=== PATIENT | female | born 1980 | race Caucasian/White ===

== ENCOUNTER 2018-06-15 08:44 | Inpatient (IN) | payer BC ==
[2018-06-15] MEDS ORDERED: Sodium Chloride 0.9% 10 ML Syringe FLUSH PRN (09:04)
[2018-06-15] MEDS ORDERED: LORazepam 2 MG/ML SDV IVPUSH ONE ×3 (09:04→23:05)
[2018-06-15] MEDS ORDERED: Ondansetron 4 MG/2 ML SDV IVPUSH ONE (09:06)
[2018-06-15] MEDS ORDERED: Sodium Chloride 0.9% 1,000 ML IV SCH ×3 (09:15→11:30)
--- NOTE | 2018-06-15 09:19 | EDM.PDOC ---
ED HPI GENERAL MEDICAL PROBLEM - General Chief Complaint: Neurological Problem Stated Complaint: [facility] Time Seen by Provider: 06/15/18 08:52 Source of Information: Reports: Patient, EMS, RN Notes Reviewed - History of Present Illness INITIAL COMMENTS - FREE TEXT/NARRATIVE: 38-year-old female has been brought over by ambulance from for clinic after she experienced a witnessed 3-5 minute seizure. She had gone there for evaluation of abdominal pain, vomiting. She apparently had just been walked back into her room when she started with generalized seizure activity. Ambulance was called for transport here to the ED area upon their arrival the seizure had stopped, she was awake, mildly confused but already oriented to person and answering some questions quite appropriately. She states that she did become ill about 2 days ago with abdominal pain and also has had a lot of nausea and vomiting. The pain is been generalized abdomen but more upper than lower with some radiation to her back. She still does have gallbladder and appendix. She does smoke and admits to drinking alcohol quite regularly as well. - Related Data Allergies Allergy/AdvReac Type Severity Reaction Status Date / Time No Known Allergies Allergy Verified 06/15/18 08:54 Home Meds: Home Meds . [No Known Home Meds] 06/15/18 [History] Past Medical History - Past Health History Medical/Surgical History: Denies Medical/Surgical History Social & Family History - Tobacco Use Smoking Status *Q: Never Smoker - Recreational Drug Use Recreational Drug Use: No ED ROS GENERAL - Review of Systems Review Of Systems: See Below Constitutional: Denies: Fever, Chills, Diaphoresis HEENT: Denies: Rhinitis, Throat Pain Respiratory: Denies: Shortness of Breath, Hemoptysis GI/Abdominal: Reports: Abdominal Pain (for 2 days), Nausea, Vomiting (for 2 days ) Skin: Denies: Rash Neurological: Reports: Weakness (Generalized). Denies: Numbness, Tingling ED EXAM, GI/ABD - Physical Exam Exam: See Below General Appearance: Alert, Moderate Distress Eyes: Bilateral: Normal Appearance Throat/Mouth: Other (Oral mucosa is dry, she does have abrasion injury right tongue, no active bleeding) Head: Atraumatic Neck: Supple Respiratory/Chest: No Respiratory Distress, Lungs Clear, Normal Breath Sounds Cardiovascular: Regular Rate, Rhythm GI/Abdominal Exam: Tender. No: Guarding, Rebound (Upper mid abdomen right upper quadrant) Back Exam: No: CVA Tenderness (L), CVA Tenderness (R) Neurological: Alert, Oriented, No Motor/Sensory Deficits Skin Exam: Warm, Dry, Normal Color Course - Vital Signs Last Recorded V/S: Last Vital Signs Temp 98.2 F 06/15/18 08:49 Pulse 97 06/15/18 08:49 Resp 20 06/15/18 08:49 BP 161/91 H 06/15/18 08:49 Pulse Ox 100 06/15/18 08:49 - Orders/Labs/Meds Orders: Active Orders 24 hr Category Date Time Status Peripheral IV Care [RC] . DIRECTED Care 06/15/18 09:05 Active CPK [CREATINE KINASE,CK] [CHEM] Stat Lab 06/15/18 11:29 Ordered DRUG SCREEN, URINE [URCHEM] Stat Lab 06/15/18 11:29 Ordered ETHANOL BLOOD MEDICAL [CHEM] Stat Lab 06/15/18 11:29 Ordered Sodium Chloride 0.9% [Normal Saline] 1,000 ml Med 06/15/18 09:15 Active IV ONETIME Sodium Chloride 0.9% [Normal Saline] 1,000 ml Med 06/15/18 11:15 Active IV ONETIME Sodium Chloride 0.9% [Normal Saline] 1,000 ml Med 06/15/18 11:30 Active IV ONETIME Sodium Chloride 0.9% [Saline Flush] Med 06/15/18 09:04 Active 10 ml FLUSH ASDIRECTED PRN Peripheral IV Insertion Adult [OM.PC] Stat Oth 06/15/18 09:04 Ordered Medication Orders Sodium Chloride (Normal Saline) 1,000 mls @ 999 mls/hr IV ONETIME LUCIUS Last Admin: 06/15/18 09:18 Dose: 999 mls/hr Sodium Chloride (Normal Saline) 1,000 mls @ 999 mls/hr IV ONETIME LUCIUS Last Admin: 06/15/18 11:23 Dose: 999 mls/hr Sodium Chloride (Normal Saline) 1,000 mls @ 999 mls/hr IV ONETIME LUCIUS Sodium Chloride (Saline Flush) 10 ml FLUSH ASDIRECTED PRN PRN Reason: Keep Vein Open Last Admin: 06/15/18 09:11 Dose: 10 ml Labs: Laboratory Tests 06/15/18 06/15/18 06/15/18 Range/Units 08:50 08:50 08:50 WBC 12.07 H (3.98-10.04) K/mm3 RBC 4.26 (3.98-5.22) M/mm3 Hgb 14.5 (11.2-15.7) gm/L Hct 44.0 (34.1-44.9) % MCV 103.3 H (79.4-94.8) fl MCH 34.0 H (25.6-32.2) pg MCHC 33.0 (32.2-35.5) g/dl RDW Std Deviation 48.5 H (36.4-46.3) fL Plt Count 160 L (182-369) K/mm3 MPV 10.1 (9.4-12.3) fl Neut % (Auto) 87.7 H (34.0-71.1) % Lymph % (Auto) 6.9 L (19.3-51.7) % Dickinson % (Auto) 4.9 (4.7-12.5) % Eos % (Auto) 0.1 L (0.7-5.8) Baso % (Auto) 0.2 (0.1-1.2) % Neut # (Auto) 10.59 H (1.56-6.13) K/mm3 Lymph # (Auto) 0.83 L (1.18-3.74) K/mm3 Dickinson # (Auto) 0.59 H (0.24-0.36) K/mm3 Eos # (Auto) 0.01 L (0.04-0.36) K/mm3 Baso # (Auto) 0.03 (0.01-0.08) K/mm3 Manual Slide Review Abnormal smear Sodium 138 (136-145) mEq/L Potassium 3.1 L (3.5-5.1) mEq/L Chloride 96 L (98-107) mEq/L Carbon Dioxide 14 L (21-32) mEq/L Anion Gap 31.1 H (5-15) BUN 10 (7-18) mg/dL Creatinine 1.5 H (0.55-1.02) mg/dL Est Cr Clr Drug Dosing 42.06 mL/min Estimated GFR (MDRD) 39 (>60) mL/min BUN/Creatinine Ratio 6.7 L (14-18) Glucose 119 H (74-106) mg/dL Lactic Acid (0.4-2.0) mmol/L Calcium 9.3 (8.5-10.1) mg/dL Total Bilirubin 2.1 H (0.2-1.0) mg/dL AST TNP ALT TNP Alkaline Phosphatase 66 (46-116) U/L C-Reactive Protein 5.6 H* (<1.0) mg/dL Total Protein 8.0 (6.4-8.2) g/dl Albumin 4.6 (3.4-5.0) g/dl Globulin 3.4 gm/dL Albumin/Globulin Ratio 1.4 (1-2) Lipase 37187 H (73-393) U/L 06/15/18 Range/Units 08:50 WBC (3.98-10.04) K/mm3 RBC (3.98-5.22) M/mm3 Hgb (11.2-15.7) gm/L Hct (34.1-44.9) % MCV (79.4-94.8) fl MCH (25.6-32.2) pg MCHC (32.2-35.5) g/dl RDW Std Deviation (36.4-46.3) fL Plt Count (182-369) K/mm3 MPV (9.4-12.3) fl Neut % (Auto) (34.0-71.1) % Lymph % (Auto) (19.3-51.7) % Dickinson % (Auto) (4.7-12.5) % Eos % (Auto) (0.7-5.8) Baso % (Auto) (0.1-1.2) % Neut # (Auto) (1.56-6.13) K/mm3 Lymph # (Auto) (1.18-3.74) K/mm3 Dickinson # (Auto) (0.24-0.36) K/mm3 Eos # (Auto) (0.04-0.36) K/mm3 Baso # (Auto) (0.01-0.08) K/mm3 Manual Slide Review Sodium (136-145) mEq/L Potassium (3.5-5.1) mEq/L Chloride (98-107) mEq/L Carbon Dioxide (21-32) mEq/L Anion Gap (5-15) BUN (7-18) mg/dL Creatinine (0.55-1.02) mg/dL Est Cr Clr Drug Dosing mL/min Estimated GFR (MDRD) (>60) mL/min BUN/Creatinine Ratio (14-18) Glucose (74-106) mg/dL Lactic Acid 14.5 H (0.4-2.0) mmol/L Calcium (8.5-10.1) mg/dL Total Bilirubin (0.2-1.0) mg/dL AST ALT Alkaline Phosphatase (46-116) U/L C-Reactive Protein (<1.0) mg/dL Total Protein (6.4-8.2) g/dl Albumin (3.4-5.0) g/dl Globulin gm/dL Albumin/Globulin Ratio (1-2) Lipase (73-393) U/L Meds: Medications Generic Name Dose Route Start Last Admin Trade Name Roelq PRN Reason Stop Dose Admin Sodium Chloride 1,000 mls @ 999 mls/hr 06/15/18 09:15 06/15/18 09:18 Normal Saline IV 999 mls/hr ONETIME LUCIUS Administration Sodium Chloride 1,000 mls @ 999 mls/hr 06/15/18 11:15 06/15/18 11:23 Normal Saline IV 999 mls/hr ONETIME LUCIUS Administration Sodium Chloride 1,000 mls @ 999 mls/hr 06/15/18 11:30 Normal Saline IV ONETIME LUCIUS Sodium Chloride 10 ml 06/15/18 09:04 06/15/18 09:11 Saline Flush FLUSH 10 ml ASDIRECTED PRN Administration Keep Vein Open Discontinued Medications Generic Name Dose Route Start Last Admin Trade Name Roelq PRN Reason Stop Dose Admin Diatrizoate Meglum/Diatrizoate Sod 90 ml 06/15/18 11:35 Gastrografin 37% PO 06/15/18 11:36 ONETIME ONE Hydromorphone HCl 1 mg 06/15/18 10:20 06/15/18 11:41 Dilaudid IVPUSH 06/15/18 10:21 0.5 mg ONETIME ONE Administration Iopamidol 200 ml 06/15/18 11:36 Isovue-370 (76%) IV 06/15/18 11:37 ONETIME ONE Lorazepam 0.5 mg 06/15/18 09:04 06/15/18 09:11 Ativan IVPUSH 06/15/18 09:05 0.5 mg ONETIME ONE Administration Lorazepam 0.5 mg 06/15/18 10:21 06/15/18 10:29 Ativan IVPUSH 06/15/18 10:22 0.5 mg ONETIME ONE Administration Metoclopramide HCl 5 mg 06/15/18 11:33 06/15/18 11:39 Reglan IVPUSH 06/15/18 11:34 5 mg ONETIME ONE Administration Ondansetron HCl 4 mg 06/15/18 09:06 06/15/18 09:18 Zofran IVPUSH 06/15/18 09:07 4 mg ONETIME ONE Administration Sodium Chloride 10 ml 06/15/18 11:37 Saline Flush FLUSH 06/15/18 11:38 ONETIME ONE - Re-Assessments/Exams Free Text/Narrative Re-Assessment/Exam: 06/15/18 11:30. Have treated with IV fluid, IV Zofran, Ativan, Dilaudid. She does feel better. Lipase is come back tremendously elevated, over 11,000, to sound upper abdomen has been ordered. We'll continue above treatment. 11:50. Ultrasound report is back showing some fluid next to the gallbladder neck small amount of ascites right lobe of liver, slightly prominent pancreatic duct. Fatty infiltration of the liver. No additional abnormality noted. See radiology report for details. There was strong consideration of doing abdominal CT. However with her dehydration, renal function impaired, elevated BUN/ creatinine will hold off on CT for now. Patient will be admitted for further treatment. Departure - Departure Time of Disposition: 11:30 Disposition: Admitted As Inpatient 66 Clinical Impression: Dehydration, Renal insufficiency, Generalized seizure Pancreatitis Qualifiers: Chronicity: acute Pancreatitis type: alcohol induced Acute pancreatitis complication: unspecified Qualified Code(s): K85.20 - Alcohol induced acute pancreatitis without necrosis or infection - Discharge Information Referrals: Trinity Keith PA-C [Primary Care Provider] - Forms: ED Department Discharge ED Communication - Discussed Case With (1) Discussed Case With (1): Admitting Provider (Dr Chavez, decision to admit at about 11:30) - My Orders Last 24 Hours: My Active Orders 06/15/18 09:04 Sodium Chloride 0.9% [Saline Flush] 10 ml FLUSH ASDIRECTED PRN Peripheral IV Insertion Adult [OM.PC] Stat 06/15/18 09:05 Peripheral IV Care [RC] . DIRECTED 06/15/18 09:15 Sodium Chloride 0.9% [Normal Saline] 1,000 ml IV ONETIME 06/15/18 11:15 Sodium Chloride 0.9% [Normal Saline] 1,000 ml IV ONETIME 06/15/18 11:29 CPK [CREATINE KINASE,CK] [CHEM] Stat DRUG SCREEN, URINE [URCHEM] Stat ETHANOL BLOOD MEDICAL [CHEM] Stat 06/15/18 11:30 Sodium Chloride 0.9% [Normal Saline] 1,000 ml IV ONETIME - Assessment/Plan Last 24 Hours: My Active Orders 06/15/18 09:04 Sodium Chloride 0.9% [Saline Flush] 10 ml FLUSH ASDIRECTED PRN Peripheral IV Insertion Adult [OM.PC] Stat 06/15/18 09:05 Peripheral IV Care [RC] . DIRECTED 06/15/18 09:15 Sodium Chloride 0.9% [Normal Saline] 1,000 ml IV ONETIME 06/15/18 11:15 Sodium Chloride 0.9% [Normal Saline] 1,000 ml IV ONETIME 06/15/18 11:29 CPK [CREATINE KINASE,CK] [CHEM] Stat DRUG SCREEN, URINE [URCHEM] Stat ETHANOL BLOOD MEDICAL [CHEM] Stat 06/15/18 11:30 Sodium Chloride 0.9% [Normal Saline] 1,000 ml IV ONETIME
[2018-06-15] MEDS: HYDROmorphone 1 MG/ML Syringe IVPUSH ONE ×2 (10:30→11:41)
[2018-06-15] MEDS ORDERED: Metoclopramide 10 MG/2 ML SDV IVPUSH ONE (11:33)
[2018-06-15] MEDS ORDERED: Diatrizoate Meglumine/Diatrizoate Sodium 37% 120 ML Bottle PO ONE (11:35)
[2018-06-15] MEDS ORDERED: Iopamidol 755 Mg/ML 200 ML Bottle IV ONE (11:36)
[2018-06-15] MEDS ORDERED: Sodium Chloride 0.9% 10 ML Syringe FLUSH ONE (11:37)
--- NOTE | 2018-06-15 11:53 | US ---
Limited abdominal ultrasound: Multiple real-time images were obtained of the upper right abdomen. Comparison: No prior abdominal imaging. Pancreatic duct is slightly enlarged at 3.3 mm. Etiology is not appreciated on this exam. Right and left lobes of the liver appears somewhat echogenic compatible with fatty infiltration. Right kidney shows no hydronephrosis or mass. Right kidney has a length of 11.1 cm. Gallbladder shows no shadowing gallstones. There appears to be a minimal amount of fluid next to the gallbladder neck. No gallbladder wall thickening is seen. No biliary duct dilatation is seen. There is small amount of ascites seen next to the right lobe of the liver. Impression: 1. Minimal fluid next to the gallbladder neck. Small amount of ascites next to the right lobe of the liver. 2. Slightly prominent pancreatic duct of uncertain etiology. 3. Fatty infiltration within the liver. 4. No additional abnormality is appreciated on right upper quadrant abdominal ultrasound. Diagnostic code #3
[2018-06-15] MEDS ORDERED: HYDROmorphone 1 MG/ML Syringe IVPUSH PRN (12:06)
[2018-06-15] MEDS ORDERED: Lactated Ringers 1,000 ML IV ONE (12:06)
[2018-06-15] MEDS ORDERED: Ondansetron 4 MG/2 ML SDV IV PRN (12:06)
[2018-06-15] MEDS ORDERED: Folic Acid 1 MG Tab PO ONE ×2 (12:18→15:30)
[2018-06-15] MEDS ORDERED: Thiamine 100 MG in Sodium Chloride 0.9% 100 ML IV ONE (12:18)
[2018-06-15] MEDS ORDERED: Potassium Chloride 10% 20 MEQ/15 ML Soln 15 ML UD Cup PO ONE ×2 (12:20→15:30)
[2018-06-15] MEDS: LORazepam 2 MG/ML SDV IV SCH ×3 (13:13→20:50)
--- NOTE | 2018-06-15 13:22 | CR ---
Chest: Portable view of the chest was obtained. Comparison: No prior chest x-ray. Heart size and mediastinum are normal. Lungs are clear with no acute parenchymal change. Bony structures are grossly intact. Impression: 1. Nothing acute is seen on portable chest x-ray. Diagnostic code #1
--- NOTE | 2018-06-15 13:34 | PCM.HP ---
H&P History of Present Illness - General Date of Service: 06/15/18 Admit Problem/Dx: Admission Diagnosis/Problem Admission Diagnosis/Problem Pancreatitis Source of Information: Patient - History of Present Illness Initial Comments - Free Text/Narative: This 38-year-old female, with a witnessed seizure this morning at the [facility], was brought to the emergency room by EMS. Patient states that Friday she started developing abdominal pain in the epigastrium that radiated into her chest. This occurred after lunch. Throughout the rest of the day the pain became more generalized the abdomen and worse. She states the pain was excruciating. On Friday morning patient woke up and started vomiting and essentially vomited all day and all night. This morning she went to the [facility] for further evaluation where she became unresponsive, had seizure-like activity per emergency room physician, and EMS was called. Patient does not remember anything from after getting her vital signs taken to when the EMS arrived this morning. She she denies any previous seizure activity. She also states she did not have urinary or stool incontinence. It is not believed that she struck her head during the seizure. The seizure reportedly lasted 3-5 minutes. Patient states now after getting Zofran, Dilaudid and Ativan that her pain is tolerable and she has had no more vomiting. Patient states that on Friday night she did have 3-4 16 ounce beers. She was at a work function. She states she drinks usually on the weekends and this is not an unusual amount. During the week she will have 1-2, but not every night. She has never had significant withdrawal symptoms, seizures, or delirium. She has had a hangover. Her last alcoholic drink was on Friday. She denies any hematemesis, black stools, or blood in her stools. Ultrasound of the right upper quadrant found minimal fluid next to the gallbladder neck. Small amount of ascites next to the right lobe of the liver. Slightly prominent pancreatic duct of uncertain etiology. Fatty infiltration within the liver. Please see full report for details. - Related Data Allergies/Adverse Reactions: Allergies Allergy/AdvReac Type Severity Reaction Status Date / Time No Known Allergies Allergy Verified 06/15/18 14:38 Home Medications: Home Meds medroxyPROGESTERone Acetate [Depo-Provera] 150 mg IM ASDIRECTED 06/15/18 [ History] Past Medical History - Past Health History Medical/Surgical History: Denies Medical/Surgical History Social & Family History - Family History GI: Reports: Cirrhosis (Father) Psychiatric: Reports: Other (See Below) (Mother and father alcoholism. Father from alcohol related conditions) - Tobacco Use Smoking Status *Q: Never Smoker - Recreational Drug Use Recreational Drug Use: No - Living Situation & Occupation Living situation: Reports: Single, Other (Children age 14 and 4) Occupation: Employed H&P Review of Systems - Review of Systems: Review Of Systems: See Below General: Reports: Fatigue, Decreased Appetite HEENT: Reports: No Symptoms. Denies: Headaches, Visual Changes Pulmonary: Reports: No Symptoms. Denies: Shortness of Breath, Cough Cardiovascular: Reports: Chest Pain. Denies: Palpitations, Dyspnea on Exertion , PND, Edema Gastrointestinal: Reports: Abdominal Pain, Anorexia, Nausea, Vomiting. Denies: Black Stool, Bloody Stool, Diarrhea, Hematemesis, Hematochezia, Melena Genitourinary: Reports: No Symptoms. Denies: Dysuria, Frequency Musculoskeletal: Reports: Back Pain. Denies: Leg Pain Skin: Reports: No Symptoms Psychiatric: Reports: No Symptoms. Denies: Confusion Neurological: Reports: No Symptoms. Denies: Confusion, Dizziness, Headache, Numbness Hematologic/Lymphatic: Reports: No Symptoms Immunologic: Reports: No Symptoms Exam - Exam Exam: See Below - Vital Signs Vital Signs: Last Vital Signs Temp 98.2 F 06/15/18 08:49 Pulse 97 06/15/18 08:49 Resp 20 06/15/18 08:49 BP 161/91 H 06/15/18 08:49 Pulse Ox 100 06/15/18 08:49 Weight: 125 lb - Exam General: Alert, Oriented, Cooperative HEENT: Conjunctiva Clear, EOMI, Mucosa Moist & [place] Neck: Supple, Trachea Midline Lungs: Clear to Auscultation, Normal Respiratory Effort Cardiovascular: Regular Rate, Regular Rhythm GI/Abdominal Exam: Soft, No Organomegaly, No Distention, Tender, Other ( Hyperactive bowel sounds) Back Exam: Normal Inspection Extremities: Normal Inspection, Normal Range of Motion, No Pedal Edema, Normal Capillary Refill Peripheral Pulses: 2+: Dorsalis Pedis (L), Dorsalis Pedis (R) Skin: Warm, Dry, Intact Neuro Extensive - Mental Status: Alert, Oriented x3, Normal Mood/Affect, Normal Cognition Neuro Extensive - Motor, Sensory, Reflexes: Tremor Psychiatric: Alert, Normal Affect, Normal Mood - Patient Data Lab Results Last 24 hrs: Laboratory Results - last 24 hr 06/15/18 06/15/18 06/15/18 Range/Units 08:50 08:50 08:50 WBC 12.07 H (3.98-10.04) K/mm3 RBC 4.26 (3.98-5.22) M/mm3 Hgb 14.5 (11.2-15.7) gm/L Hct 44.0 (34.1-44.9) % MCV 103.3 H (79.4-94.8) fl MCH 34.0 H (25.6-32.2) pg MCHC 33.0 (32.2-35.5) g/dl RDW Std Deviation 48.5 H (36.4-46.3) fL Plt Count 160 L (182-369) K/mm3 MPV 10.1 (9.4-12.3) fl Neut % (Auto) 87.7 H (34.0-71.1) % Lymph % (Auto) 6.9 L (19.3-51.7) % Crowley % (Auto) 4.9 (4.7-12.5) % Eos % (Auto) 0.1 L (0.7-5.8) Baso % (Auto) 0.2 (0.1-1.2) % Neut # (Auto) 10.59 H (1.56-6.13) K/mm3 Lymph # (Auto) 0.83 L (1.18-3.74) K/mm3 Crowley # (Auto) 0.59 H (0.24-0.36) K/mm3 Eos # (Auto) 0.01 L (0.04-0.36) K/mm3 Baso # (Auto) 0.03 (0.01-0.08) K/mm3 Manual Slide Review Abnormal smear PT (9.5-12.1) SECONDS INR APTT (24-31) SECONDS Puncture Site ABG pH (7.35-7.45) ABG pCO2 (35.0-45.0) mmHg ABG pO2 (80.0-100.0) mmHg ABG HCO3 (22.0-26.0) meq/L ABG O2 Saturation (96.0-97.0) % ABG Base Excess (-2-2.0) Harjeet Test O2 Delivery Device Oxygen Flow Rate FiO2 (21.00-100.00) % Sodium 138 (136-145) mEq/L Potassium 3.1 L (3.5-5.1) mEq/L Chloride 96 L (98-107) mEq/L Carbon Dioxide 14 L (21-32) mEq/L Anion Gap 31.1 H (5-15) BUN 10 (7-18) mg/dL Creatinine 1.5 H (0.55-1.02) mg/dL Est Cr Clr Drug Dosing 42.06 mL/min Estimated GFR (MDRD) 39 (>60) mL/min BUN/Creatinine Ratio 6.7 L (14-18) Glucose 119 H (74-106) mg/dL Lactic Acid (0.4-2.0) mmol/L Calcium 9.3 (8.5-10.1) mg/dL Phosphorus (2.6-4.7) mg/dL Magnesium (1.8-2.4) mg/dl Total Bilirubin 2.1 H (0.2-1.0) mg/dL AST TNP ALT TNP Alkaline Phosphatase 66 (46-116) U/L Creatine Kinase (26-192) U/L Troponin I (0.00-0.056) ng/mL C-Reactive Protein 5.6 H* (<1.0) mg/dL Total Protein 8.0 (6.4-8.2) g/dl Albumin 4.6 (3.4-5.0) g/dl Globulin 3.4 gm/dL Albumin/Globulin Ratio 1.4 (1-2) Lipase 61565 H (73-393) U/L Ethyl Alcohol (0.00) gm% 06/15/18 06/15/18 06/15/18 Range/Units 08:50 08:50 08:50 WBC (3.98-10.04) K/mm3 RBC (3.98-5.22) M/mm3 Hgb (11.2-15.7) gm/L Hct (34.1-44.9) % MCV (79.4-94.8) fl MCH (25.6-32.2) pg MCHC (32.2-35.5) g/dl RDW Std Deviation (36.4-46.3) fL Plt Count (182-369) K/mm3 MPV (9.4-12.3) fl Neut % (Auto) (34.0-71.1) % Lymph % (Auto) (19.3-51.7) % Crowley % (Auto) (4.7-12.5) % Eos % (Auto) (0.7-5.8) Baso % (Auto) (0.1-1.2) % Neut # (Auto) (1.56-6.13) K/mm3 Lymph # (Auto) (1.18-3.74) K/mm3 Crowley # (Auto) (0.24-0.36) K/mm3 Eos # (Auto) (0.04-0.36) K/mm3 Baso # (Auto) (0.01-0.08) K/mm3 Manual Slide Review PT 13.1 H (9.5-12.1) SECONDS INR 1.21 APTT 25 (24-31) SECONDS Puncture Site ABG pH (7.35-7.45) ABG pCO2 (35.0-45.0) mmHg ABG pO2 (80.0-100.0) mmHg ABG HCO3 (22.0-26.0) meq/L ABG O2 Saturation (96.0-97.0) % ABG Base Excess (-2-2.0) Harjeet Test O2 Delivery Device Oxygen Flow Rate FiO2 (21.00-100.00) % Sodium (136-145) mEq/L Potassium (3.5-5.1) mEq/L Chloride (98-107) mEq/L Carbon Dioxide (21-32) mEq/L Anion Gap (5-15) BUN (7-18) mg/dL Creatinine (0.55-1.02) mg/dL Est Cr Clr Drug Dosing mL/min Estimated GFR (MDRD) (>60) mL/min BUN/Creatinine Ratio (14-18) Glucose (74-106) mg/dL Lactic Acid 14.5 H (0.4-2.0) mmol/L Calcium (8.5-10.1) mg/dL Phosphorus (2.6-4.7) mg/dL Magnesium (1.8-2.4) mg/dl Total Bilirubin (0.2-1.0) mg/dL AST ALT Alkaline Phosphatase (46-116) U/L Creatine Kinase 247 H (26-192) U/L Troponin I (0.00-0.056) ng/mL C-Reactive Protein (<1.0) mg/dL Total Protein (6.4-8.2) g/dl Albumin (3.4-5.0) g/dl Globulin gm/dL Albumin/Globulin Ratio (1-2) Lipase (73-393) U/L Ethyl Alcohol 0.00 (0.00) gm% 06/15/18 06/15/18 Range/Units 08:50 12:06 WBC (3.98-10.04) K/mm3 RBC (3.98-5.22) M/mm3 Hgb (11.2-15.7) gm/L Hct (34.1-44.9) % MCV (79.4-94.8) fl MCH (25.6-32.2) pg MCHC (32.2-35.5) g/dl RDW Std Deviation (36.4-46.3) fL Plt Count (182-369) K/mm3 MPV (9.4-12.3) fl Neut % (Auto) (34.0-71.1) % Lymph % (Auto) (19.3-51.7) % Crowley % (Auto) (4.7-12.5) % Eos % (Auto) (0.7-5.8) Baso % (Auto) (0.1-1.2) % Neut # (Auto) (1.56-6.13) K/mm3 Lymph # (Auto) (1.18-3.74) K/mm3 Crowley # (Auto) (0.24-0.36) K/mm3 Eos # (Auto) (0.04-0.36) K/mm3 Baso # (Auto) (0.01-0.08) K/mm3 Manual Slide Review PT (9.5-12.1) SECONDS INR APTT (24-31) SECONDS Puncture Site Rt radial ABG pH 7.44 (7.35-7.45) ABG pCO2 32.0 L (35.0-45.0) mmHg ABG pO2 82.0 (80.0-100.0) mmHg ABG HCO3 21.4 L (22.0-26.0) meq/L ABG O2 Saturation 97.3 H (96.0-97.0) % ABG Base Excess -1.5 (-2-2.0) Harjeet Test Positive O2 Delivery Device Room air Oxygen Flow Rate 0.0 FiO2 0.00 L (21.00-100.00) % Sodium (136-145) mEq/L Potassium (3.5-5.1) mEq/L Chloride (98-107) mEq/L Carbon Dioxide (21-32) mEq/L Anion Gap (5-15) BUN (7-18) mg/dL Creatinine (0.55-1.02) mg/dL Est Cr Clr Drug Dosing mL/min Estimated GFR (MDRD) (>60) mL/min BUN/Creatinine Ratio (14-18) Glucose (74-106) mg/dL Lactic Acid (0.4-2.0) mmol/L Calcium (8.5-10.1) mg/dL Phosphorus 3.4 (2.6-4.7) mg/dL Magnesium 1.5 L (1.8-2.4) mg/dl Total Bilirubin (0.2-1.0) mg/dL AST ALT Alkaline Phosphatase (46-116) U/L Creatine Kinase (26-192) U/L Troponin I < 0.017 (0.00-0.056) ng/mL C-Reactive Protein (<1.0) mg/dL Total Protein (6.4-8.2) g/dl Albumin (3.4-5.0) g/dl Globulin gm/dL Albumin/Globulin Ratio (1-2) Lipase (73-393) U/L Ethyl Alcohol (0.00) gm% Result Diagrams: 06/15/18 08:50 06/15/18 08:50 EKG INTERPRETATION EKG Date: 06/15/18 Time: 12:30 Rhythm: NSR Rate (Beats/Min): 72 [place]: Normal P-Wave: Present QRS: Normal ST-T: Normal QT: Normal Comparison: NA - No Prior EKG EKG Interpretation Comments: Normal - Problem List (1) Generalized seizure SNOMED Code(s): 489889524 ICD Code: R56.9 - UNSPECIFIED CONVULSIONS Status: Acute Current Visit: Yes (2) Pancreatitis SNOMED Code(s): 63913609 ICD Code: K85.90 - ACUTE PANCREATITIS WITHOUT NECROSIS OR INFECTION, UNSP Status: Acute Current Visit: Yes Qualifiers: Chronicity: acute Pancreatitis type: alcohol induced Acute pancreatitis complication: unspecified Qualified Code(s): K85.20 - Alcohol induced acute pancreatitis without necrosis or infection (3) Renal insufficiency SNOMED Code(s): 152370233, 150422649 ICD Code: N28.9 - DISORDER OF KIDNEY AND URETER, UNSPECIFIED Status: Acute Current Visit: Yes (4) Dehydration SNOMED Code(s): 62081335 ICD Code: E86.0 - DEHYDRATION Status: Acute Current Visit: Yes Problem List Initiated/Reviewed/Updated: Yes Orders Last 24hrs: Active Orders 24 hr Category Date Time Status Admission Status [Patient Status] [ADT] Routine ADT 06/15/18 12:29 Active Bedrest Bedside Commode [RC] ASDIRECTED Care 06/15/18 12:06 Active Cardiac Monitoring [RC] CONTINUOUS Care 06/15/18 12:08 Active EKG Documentation Completion [RC] STAT Care 06/15/18 12:06 Active Height and Weight [RC] DAILY Care 06/15/18 12:06 Active Intake and Output [RC] QSHIFT Care 06/15/18 12:08 Active Notify Provider Vital Signs [RC] ASDIRECTED Care 06/15/18 12:08 Active Oxygen Therapy [RC] PRN Care 06/15/18 12:06 Active Peripheral IV Care [RC] . DIRECTED Care 06/15/18 09:05 Active Pulse Oximetry [RC] CONTINUOUS Care 06/15/18 12:08 Active VTE/DVT Education [RC] PER UNIT ROUTINE Care 06/15/18 12:06 Active Vital Signs [RC] Q4H Care 06/15/18 12:06 Active Consult to Case Management/Felt Finishing Supervisor [CONS] Cons 06/15/18 12:06 Active Routine Nothing per Oral Now Diet [DIET] Diet 06/15/18 Lunch Active CBC WITH AUTO DIFF [HEME] AM Lab 06/16/18 05:11 Ordered COMPREHENSIVE METABOLIC PN,CMP [CHEM] AM Lab 06/16/18 05:11 Ordered DRUG SCREEN, URINE [URCHEM] Stat Lab 06/15/18 11:29 Ordered LACTIC ACID [CHEM] AM Lab 06/16/18 05:11 Ordered LIPASE [CHEM] AM Lab 06/16/18 05:11 Ordered LIPID PANEL [CHEM] AM Lab 06/16/18 05:11 Ordered MAGNESIUM [CHEM] AM Lab 06/16/18 05:11 Ordered PHOSPHORUS [CHEM] AM Lab 06/16/18 05:11 Ordered UA W/MICROSCOPIC [URIN] Stat Lab 06/15/18 12:06 Ordered Enoxaparin [Lovenox] Med 06/16/18 09:00 Active 40 mg SUBCUT DAILY HYDROmorphone [Dilaudid] Med 06/15/18 12:06 Active 0.5 mg IVPUSH Q2H PRN LORazepam [Ativan] Med 06/15/18 12:15 Active 1 mg IV Q4H Lactated Ringers [Ringers, Lactated] 1,000 ml Med 06/15/18 12:15 Active IV ASDIRECTED Ondansetron [Zofran] Med 06/15/18 12:06 Active 4 mg IV Q4H PRN Sodium Chloride 0.9% [Normal Saline] 1,000 ml Med 06/15/18 09:15 Active IV ONETIME Sodium Chloride 0.9% [Normal Saline] 1,000 ml Med 06/15/18 11:15 Active IV ONETIME Sodium Chloride 0.9% [Normal Saline] 1,000 ml Med 06/15/18 11:30 Active IV ONETIME Sodium Chloride 0.9% [Saline Flush] Med 06/15/18 09:04 Active 10 ml FLUSH ASDIRECTED PRN Peripheral IV Insertion Adult [OM.PC] Stat Oth 06/15/18 09:04 Ordered Resuscitation Status Routine Resus Stat 06/15/18 12:06 Ordered Medication Orders Enoxaparin Sodium (Lovenox) 40 mg SUBCUT DAILY LUCIUS Hydromorphone HCl (Dilaudid) 0.5 mg IVPUSH Q2H PRN PRN Reason: Pain (severe 7-10) Sodium Chloride (Normal Saline) 1,000 mls @ 999 mls/hr IV ONETIME LUCIUS Last Admin: 06/15/18 09:18 Dose: 999 mls/hr Sodium Chloride (Normal Saline) 1,000 mls @ 999 mls/hr IV ONETIME LUCIUS Last Admin: 06/15/18 11:23 Dose: 999 mls/hr Sodium Chloride (Normal Saline) 1,000 mls @ 999 mls/hr IV ONETIME LUCIUS Last Admin: 06/15/18 13:03 Dose: 999 mls/hr Lactated Ringer's (Ringers, Lactated) 1,000 mls @ 200 mls/hr IV ASDIRECTED LUCIUS Lorazepam (Ativan) 1 mg IV Q4H LUCIUS Last Admin: 06/15/18 13:13 Dose: 1 mg Ondansetron HCl (Zofran) 4 mg IV Q4H PRN PRN Reason: Nausea/Vomiting Sodium Chloride (Saline Flush) 10 ml FLUSH ASDIRECTED PRN PRN Reason: Keep Vein Open Last Admin: 06/15/18 09:11 Dose: 10 ml Assessment/Plan Comment:: Generalized seizure * Reported generalized seizure witnessed by staff at [facility] * Unsure at this time of cause. It could be secondary to alcohol withdrawal. * Consider neuro imaging in the morning. * Continue on Ativan scheduled for seizure prevention and possible alcohol withdrawal * Monitor on telemetry with neuro checks Pancreatitis * Patient's lipase was 11,100. * Rehydrate with a minimum of 2 L bolus * Check ABGs * Significant anion gap - this could be due to her dehydration. * Elevated lactic acid - follow in the morning. Likely secondary to seizure activity and possibly alcoholism * Consider CT of the abdomen in 48 hours if patient does not improve. Dehydration * 2 L of fluid bolus * LR at 200 mL per hour * Reevaluate in the morning Acute Renal insufficiency * Creatinine is 1.5 * Likely due to volume depletion. * Volume resuscitate and recheck in the morning. Hypomagnesemia * Magnesium was 1.5 * 4 g IV and recheck in the morning
[2018-06-15] MEDS ORDERED: LORazepam 2 MG/ML SDV IVPUSH PRN (14:36)
[2018-06-15] MEDS ORDERED: Nicotine 14 MG/24 Hr Patch TRDERM SCH (15:30)
[2018-06-15] MEDS ORDERED: Thiamine 200 MG/2 ML MDV IVPUSH ONE (15:30)
[2018-06-15] MEDS: Lactated Ringers 1,000 ML IV SCH ×2 (15:46→20:52)
[2018-06-15] MEDS ORDERED: cefTRIAXone 2 GM Vial IVPUSH SCH (18:00)
[2018-06-15] MEDS ORDERED: cefTRIAXone 1 GM in Sodium Chloride 0.9% 100 ML IV SCH (18:00)
[2018-06-15] MEDS ORDERED: Lactated Ringers 1,000 ML IV SCH (23:15)
--- NOTE | 2018-06-15 23:45 | PCM.DCSUM1 ---
Discharge Summary - Hospital Course Free Text/Narrative:: This 38-year-old female, with a witnessed seizure this morning at the [facility], was brought to the emergency room by EMS. Patient states that Friday she started developing abdominal pain in the epigastrium that radiated into her chest. This occurred after lunch. Throughout the rest of the day the pain became more generalized the abdomen and worse. She states the pain was excruciating. On Friday morning patient woke up and started vomiting and essentially vomited all day and all night. This morning she went to the [facility] for further evaluation where she became unresponsive, had seizure-like activity per emergency room physician, and EMS was called. Patient does not remember anything from after getting her vital signs taken to when the EMS arrived this morning. She she denies any previous seizure activity. She also states she did not have urinary or stool incontinence. It is not believed that she struck her head during the seizure. The seizure reportedly lasted 3-5 minutes. Patient states now after getting Zofran, Dilaudid and Ativan that her pain is tolerable and she has had no more vomiting. Patient states that on Friday night she did have 3-4 16 ounce beers. She was at a work function. She states she drinks usually on the weekends and this is not an unusual amount. During the week she will have 1-2, but not every night. She has never had significant withdrawal symptoms, seizures, or delirium. She has had a hangover. Her last alcoholic drink was on Friday. She denies any hematemesis, black stools, or blood in her stools. Ultrasound of the right upper quadrant found minimal fluid next to the gallbladder neck. Small amount of ascites next to the right lobe of the liver. Slightly prominent pancreatic duct of uncertain etiology. Fatty infiltration within the liver. Please see full report for details. Patient was found to have a urinary tract infection and started on Rocephin 1 g every 24 hours. I was called to the unit secondary to increasing alcohol withdrawal symptoms. It turns out patient drinks 1 pint of vodka a day and her last alcohol was Friday. It does appear now that her seizure activity was alcohol withdrawal seizure. - Discharge Data Discharge Date: 06/15/18 Discharge Disposition: DC/Tfer to Acute Hospital 02 Condition: Poor - Discharge Diagnosis/Problem(s) (1) Generalized seizure SNOMED Code(s): 706356970 ICD Code: R56.9 - UNSPECIFIED CONVULSIONS Status: Acute Current Visit: Yes (2) Pancreatitis SNOMED Code(s): 26518452 ICD Code: K85.90 - ACUTE PANCREATITIS WITHOUT NECROSIS OR INFECTION, UNSP Status: Acute Current Visit: Yes Qualifiers: Chronicity: acute Pancreatitis type: alcohol induced Acute pancreatitis complication: unspecified Qualified Code(s): K85.20 - Alcohol induced acute pancreatitis without necrosis or infection (3) Renal insufficiency SNOMED Code(s): 327593715, 915722312 ICD Code: N28.9 - DISORDER OF KIDNEY AND URETER, UNSPECIFIED Status: Acute Current Visit: Yes (4) Dehydration SNOMED Code(s): 49143077 ICD Code: E86.0 - DEHYDRATION Status: Acute Current Visit: Yes - Patient Summary/Data Consults: Consultations 06/15/18 12:06 Consult to Case Management/Lead Clinical Research Coordinator [CONS] Routine - Patient Instructions Diet: No Alcoholic Beverages, NPO Activity: Bedrest Driving: Do Not Drive - Discharge Plan *PRESCRIPTION DRUG MONITORING PROGRAM REVIEWED*: Not Applicable *COPY OF PRESCRIPTION DRUG MONITORING REPORT IN PATIENT IRIS: Not Applicable Home Medications: Home Meds Enoxaparin [Lovenox] 40 mg SUBCUT DAILY syringe 06/15/18 [Rx] HYDROmorphone [Dilaudid] 0.5 mg IVPUSH Q2H PRN syringe 06/15/18 [Rx] LORazepam [Ativan] 1 mg IV Q4H vial 06/15/18 [Rx] LORazepam [Ativan] 1 mg IVPUSH Q4H PRN vial 06/15/18 [Rx] Lactated Ringers [Ringers, Lactated] 150 ml IV ASDIRECTED bag 06/15/18 [Rx] Nicotine [Habitrol] 14 mg TRDERM DAILY patch 06/15/18 [Rx] Ondansetron [Zofran] 4 mg IV Q4H PRN vial 06/15/18 [Rx] Remove Patch 1 ea TRDERM Q24H each 06/15/18 [Rx] Sodium Chloride 0.9% [Saline Flush] 10 ml FLUSH ASDIRECTED PRN syringe [Rx] cefTRIAXone [Rocephin] 1 gm IV Q24H adv 06/15/18 [Rx] Oxygen Therapy Mode: Room Air Referrals: Trinity Keith PA-C [Primary Care Provider] - - Discharge Summary/Plan Comment DC Time >30 min.: Yes Discharge Summary/Plan Comment: Alcohol withdrawal seizure and worsening alcohol withdrawal syndrome * Patient be transferred to [facility]. Accepting physician is Dr. Wayne Carlisle * Reported generalized seizure witnessed by staff at [facility] * Continue on Ativan in transport for seizure prevention and alcohol withdrawal Pancreatitis * Patient's lipase was 11,100. * Rehydrate with a minimum of 2 L bolus * Significant anion gap - this could be due to her dehydration. * Elevated lactic acid - follow in the morning. Likely secondary to seizure activity and possibly alcoholism * Consider CT of the abdomen in 48 hours if patient does not improve. Dehydration * 2 L of fluid bolus * LR at 150 mL per hour Acute Renal insufficiency (resolved) * Creatinine initially was 1.5, Now 0.5 * Likely due to volume depletion. * Volume resuscitate and recheck in the morning. Hypomagnesemia * Magnesium was 1.5 * 4 g IV and recheck in the morning UTI * Received Rocephin 1 gm IV Transfer to [facility] (accepting physician Dr. Wayne Carlisle) for higher level of care via EMS. - General Info Date of Service: 06/15/18 Admission Dx/Problem (Free Text: Admission Diagnosis/Problem Admission Diagnosis/Problem Pancreatitis Subjective Update: Over the last several hours patient has had increasing confusion, hallucinations , and care. Patient now needs to have one-on-one nursing and increasing doses of Ativan. Her CIWA score has gone up to 30. We do not have any beds available in the ICU, therefore patient will be transferred to [facility] for higher level of care. Functional Status: Reports: Pain Controlled - Review of Systems General: Reports: Fatigue, Malaise HEENT: Reports: No Symptoms Pulmonary: Reports: No Symptoms. Denies: Shortness of Breath, Pleuritic Chest Pain Cardiovascular: Reports: No Symptoms. Denies: Chest Pain, Palpitations Gastrointestinal: Reports: Abdominal Pain. Denies: Nausea, Vomiting Psychiatric: Reports: Confusion, Mood Lability, Anxiety, Agitation, Hallucinations - Patient Data Vitals - Most Recent: Last Vital Signs Temp 98.1 F 06/15/18 21:04 Pulse 104 H 06/15/18 21:04 Resp 18 06/15/18 21:04 BP 141/95 H 06/15/18 22:31 Pulse Ox 100 06/15/18 21:04 Weight - Most Recent: 125 lb I&O - Last 24 hours: Intake & Output 06/15/18 06/15/18 06/16/18 14:59 22:59 06:59 Intake Total 1500 Output Total 200 Balance 1300 Lab Results - Last 24 hrs: Laboratory Results - last 24 hr 06/15/18 06/15/18 06/15/18 Range/Units 08:50 08:50 08:50 WBC 12.07 H (3.98-10.04) K/mm3 RBC 4.26 (3.98-5.22) M/mm3 Hgb 14.5 (11.2-15.7) gm/L Hct 44.0 (34.1-44.9) % MCV 103.3 H (79.4-94.8) fl MCH 34.0 H (25.6-32.2) pg MCHC 33.0 (32.2-35.5) g/dl RDW Std Deviation 48.5 H (36.4-46.3) fL Plt Count 160 L (182-369) K/mm3 MPV 10.1 (9.4-12.3) fl Neut % (Auto) 87.7 H (34.0-71.1) % Lymph % (Auto) 6.9 L (19.3-51.7) % [place] % (Auto) 4.9 (4.7-12.5) % Eos % (Auto) 0.1 L (0.7-5.8) Baso % (Auto) 0.2 (0.1-1.2) % Neut # (Auto) 10.59 H (1.56-6.13) K/mm3 Lymph # (Auto) 0.83 L (1.18-3.74) K/mm3 [place] # (Auto) 0.59 H (0.24-0.36) K/mm3 Eos # (Auto) 0.01 L (0.04-0.36) K/mm3 Baso # (Auto) 0.03 (0.01-0.08) K/mm3 Manual Slide Review Abnormal smear PT (9.5-12.1) SECONDS INR APTT (24-31) SECONDS Puncture Site ABG pH (7.35-7.45) ABG pCO2 (35.0-45.0) mmHg ABG pO2 (80.0-100.0) mmHg ABG HCO3 (22.0-26.0) meq/L ABG O2 Saturation (96.0-97.0) % ABG Base Excess (-2-2.0) Harjeet Test O2 Delivery Device Oxygen Flow Rate FiO2 (21.00-100.00) % Sodium 138 (136-145) mEq/L Potassium 3.1 L (3.5-5.1) mEq/L Chloride 96 L (98-107) mEq/L Carbon Dioxide 14 L (21-32) mEq/L Anion Gap 31.1 H (5-15) BUN 10 (7-18) mg/dL Creatinine 1.5 H (0.55-1.02) mg/dL Est Cr Clr Drug Dosing 42.06 mL/min Estimated GFR (MDRD) 39 (>60) mL/min BUN/Creatinine Ratio 6.7 L (14-18) Glucose 119 H (74-106) mg/dL Lactic Acid (0.4-2.0) mmol/L Calcium 9.3 (8.5-10.1) mg/dL Phosphorus (2.6-4.7) mg/dL Magnesium (1.8-2.4) mg/dl Total Bilirubin 2.1 H (0.2-1.0) mg/dL AST TNP ALT TNP Alkaline Phosphatase 66 (46-116) U/L Creatine Kinase (26-192) U/L Troponin I (0.00-0.056) ng/mL C-Reactive Protein 5.6 H* (<1.0) mg/dL Total Protein 8.0 (6.4-8.2) g/dl Albumin 4.6 (3.4-5.0) g/dl Globulin 3.4 gm/dL Albumin/Globulin Ratio 1.4 (1-2) Lipase 95674 H (73-393) U/L Urine Color (Yellow) Urine Appearance (Clear) Urine pH (5.0-8.0) Ur Specific [place] (1.005-1.030) Urine Protein (Negative) Urine Glucose (UA) (Negative) Urine Ketones (Negative) Urine Occult Blood (Negative) Urine Nitrite (Negative) Urine Bilirubin (Negative) Urine Urobilinogen (0.2-1.0) Ur Leukocyte Esterase (Negative) Urine RBC (0-5) /hpf Urine WBC (0-5) /hpf Ur Epithelial Cells (0-5) /hpf Urine Bacteria (FEW) /hpf Urine Mucus (FEW) /hpf Urine Opiates Screen (DYSCMT=857) Ur Buprenorphine Scrn (CUTOFF=10) Ur Oxycodone Screen (ZVH4TL=074) Urine Methadone Screen (MCMQXF=466) Ur Propoxyphene Screen (KRTCPN=767) Ur Barbiturates Screen (OEYTPD=272) Ur Tricyclics Screen (WWSZOQ=890) Ur Phencyclidine Scrn (CUTOFF=25) Ur Amphetamine Screen (RETXDL=059) U Methamphetamines Scrn (WJHSOB=112) U Benzodiazepines Scrn (ZHKLNM=741) U Cocaine Metab Screen (IMGPTX=927) U Marijuana (THC) Screen (CUTOFF=50) Ethyl Alcohol (0.00) gm% 06/15/18 06/15/18 06/15/18 Range/Units 08:50 08:50 08:50 WBC (3.98-10.04) K/mm3 RBC (3.98-5.22) M/mm3 Hgb (11.2-15.7) gm/L Hct (34.1-44.9) % MCV (79.4-94.8) fl MCH (25.6-32.2) pg MCHC (32.2-35.5) g/dl RDW Std Deviation (36.4-46.3) fL Plt Count (182-369) K/mm3 MPV (9.4-12.3) fl Neut % (Auto) (34.0-71.1) % Lymph % (Auto) (19.3-51.7) % [place] % (Auto) (4.7-12.5) % Eos % (Auto) (0.7-5.8) Baso % (Auto) (0.1-1.2) % Neut # (Auto) (1.56-6.13) K/mm3 Lymph # (Auto) (1.18-3.74) K/mm3 [place] # (Auto) (0.24-0.36) K/mm3 Eos # (Auto) (0.04-0.36) K/mm3 Baso # (Auto) (0.01-0.08) K/mm3 Manual Slide Review PT 13.1 H (9.5-12.1) SECONDS INR 1.21 APTT 25 (24-31) SECONDS Puncture Site ABG pH (7.35-7.45) ABG pCO2 (35.0-45.0) mmHg ABG pO2 (80.0-100.0) mmHg ABG HCO3 (22.0-26.0) meq/L ABG O2 Saturation (96.0-97.0) % ABG Base Excess (-2-2.0) Harjeet Test O2 Delivery Device Oxygen Flow Rate FiO2 (21.00-100.00) % Sodium (136-145) mEq/L Potassium (3.5-5.1) mEq/L Chloride (98-107) mEq/L Carbon Dioxide (21-32) mEq/L Anion Gap (5-15) BUN (7-18) mg/dL Creatinine (0.55-1.02) mg/dL Est Cr Clr Drug Dosing mL/min Estimated GFR (MDRD) (>60) mL/min BUN/Creatinine Ratio (14-18) Glucose (74-106) mg/dL Lactic Acid 14.5 H (0.4-2.0) mmol/L Calcium (8.5-10.1) mg/dL Phosphorus (2.6-4.7) mg/dL Magnesium (1.8-2.4) mg/dl Total Bilirubin (0.2-1.0) mg/dL AST ALT Alkaline Phosphatase (46-116) U/L Creatine Kinase 247 H (26-192) U/L Troponin I (0.00-0.056) ng/mL C-Reactive Protein (<1.0) mg/dL Total Protein (6.4-8.2) g/dl Albumin (3.4-5.0) g/dl Globulin gm/dL Albumin/Globulin Ratio (1-2) Lipase (73-393) U/L Urine Color (Yellow) Urine Appearance (Clear) Urine pH (5.0-8.0) Ur Specific [place] (1.005-1.030) Urine Protein (Negative) Urine Glucose (UA) (Negative) Urine Ketones (Negative) Urine Occult Blood (Negative) Urine Nitrite (Negative) Urine Bilirubin (Negative) Urine Urobilinogen (0.2-1.0) Ur Leukocyte Esterase (Negative) Urine RBC (0-5) /hpf Urine WBC (0-5) /hpf Ur Epithelial Cells (0-5) /hpf Urine Bacteria (FEW) /hpf Urine Mucus (FEW) /hpf Urine Opiates Screen (YQBDAD=200) Ur Buprenorphine Scrn (CUTOFF=10) Ur Oxycodone Screen (ZDI6LW=248) Urine Methadone Screen (GIEJES=018) Ur Propoxyphene Screen (SGLZID=081) Ur Barbiturates Screen (TMNGTV=743) Ur Tricyclics Screen (RKPIXB=453) Ur Phencyclidine Scrn (CUTOFF=25) Ur Amphetamine Screen (VTQLXH=899) U Methamphetamines Scrn (AQSEGA=562) U Benzodiazepines Scrn (NFWAPT=111) U Cocaine Metab Screen (VCCXED=773) U Marijuana (THC) Screen (CUTOFF=50) Ethyl Alcohol 0.00 (0.00) gm% 06/15/18 06/15/18 06/15/18 Range/Units 08:50 12:06 14:15 WBC (3.98-10.04) K/mm3 RBC (3.98-5.22) M/mm3 Hgb (11.2-15.7) gm/L Hct (34.1-44.9) % MCV (79.4-94.8) fl MCH (25.6-32.2) pg MCHC (32.2-35.5) g/dl RDW Std Deviation (36.4-46.3) fL Plt Count (182-369) K/mm3 MPV (9.4-12.3) fl Neut % (Auto) (34.0-71.1) % Lymph % (Auto) (19.3-51.7) % [place] % (Auto) (4.7-12.5) % Eos % (Auto) (0.7-5.8) Baso % (Auto) (0.1-1.2) % Neut # (Auto) (1.56-6.13) K/mm3 Lymph # (Auto) (1.18-3.74) K/mm3 [place] # (Auto) (0.24-0.36) K/mm3 Eos # (Auto) (0.04-0.36) K/mm3 Baso # (Auto) (0.01-0.08) K/mm3 Manual Slide Review PT (9.5-12.1) SECONDS INR APTT (24-31) SECONDS Puncture Site Rt radial ABG pH 7.44 (7.35-7.45) ABG pCO2 32.0 L (35.0-45.0) mmHg ABG pO2 82.0 (80.0-100.0) mmHg ABG HCO3 21.4 L (22.0-26.0) meq/L ABG O2 Saturation 97.3 H (96.0-97.0) % ABG Base Excess -1.5 (-2-2.0) Harjeet Test Positive O2 Delivery Device Room air Oxygen Flow Rate 0.0 FiO2 0.00 L (21.00-100.00) % Sodium (136-145) mEq/L Potassium (3.5-5.1) mEq/L Chloride (98-107) mEq/L Carbon Dioxide (21-32) mEq/L Anion Gap (5-15) BUN (7-18) mg/dL Creatinine (0.55-1.02) mg/dL Est Cr Clr Drug Dosing mL/min Estimated GFR (MDRD) (>60) mL/min BUN/Creatinine Ratio (14-18) Glucose (74-106) mg/dL Lactic Acid (0.4-2.0) mmol/L Calcium (8.5-10.1) mg/dL Phosphorus 3.4 (2.6-4.7) mg/dL Magnesium 1.5 L (1.8-2.4) mg/dl Total Bilirubin (0.2-1.0) mg/dL AST ALT Alkaline Phosphatase (46-116) U/L Creatine Kinase (26-192) U/L Troponin I < 0.017 (0.00-0.056) ng/mL C-Reactive Protein (<1.0) mg/dL Total Protein (6.4-8.2) g/dl Albumin (3.4-5.0) g/dl Globulin gm/dL Albumin/Globulin Ratio (1-2) Lipase (73-393) U/L Urine Color (Yellow) Urine Appearance (Clear) Urine pH (5.0-8.0) Ur Specific [place] (1.005-1.030) Urine Protein (Negative) Urine Glucose (UA) (Negative) Urine Ketones (Negative) Urine Occult Blood (Negative) Urine Nitrite (Negative) Urine Bilirubin (Negative) Urine Urobilinogen (0.2-1.0) Ur Leukocyte Esterase (Negative) Urine RBC (0-5) /hpf Urine WBC (0-5) /hpf Ur Epithelial Cells (0-5) /hpf Urine Bacteria (FEW) /hpf Urine Mucus (FEW) /hpf Urine Opiates Screen Presumptive positive H (SGHIKE=411) Ur Buprenorphine Scrn Negative (CUTOFF=10) Ur Oxycodone Screen Negative (SRO4CI=118) Urine Methadone Screen Negative (BDZYKQ=080) Ur Propoxyphene Screen Negative (CXXIFD=705) Ur Barbiturates Screen Negative (YYTFKA=601) Ur Tricyclics Screen Negative (CZFGZR=210) Ur Phencyclidine Scrn Negative (CUTOFF=25) Ur Amphetamine Screen Negative (NSPXTI=145) U Methamphetamines Scrn Negative (YWNQZD=969) U Benzodiazepines Scrn Presumptive positive H (LLIMFH=971) U Cocaine Metab Screen Negative (IIMELL=769) U Marijuana (THC) Screen Presumptive positive H (CUTOFF=50) Ethyl Alcohol (0.00) gm% 06/15/18 06/15/18 Range/Units 14:15 18:25 WBC (3.98-10.04) K/mm3 RBC (3.98-5.22) M/mm3 Hgb (11.2-15.7) gm/L Hct (34.1-44.9) % MCV (79.4-94.8) fl MCH (25.6-32.2) pg MCHC (32.2-35.5) g/dl RDW Std Deviation (36.4-46.3) fL Plt Count (182-369) K/mm3 MPV (9.4-12.3) fl Neut % (Auto) (34.0-71.1) % Lymph % (Auto) (19.3-51.7) % [place] % (Auto) (4.7-12.5) % Eos % (Auto) (0.7-5.8) Baso % (Auto) (0.1-1.2) % Neut # (Auto) (1.56-6.13) K/mm3 Lymph # (Auto) (1.18-3.74) K/mm3 [place] # (Auto) (0.24-0.36) K/mm3 Eos # (Auto) (0.04-0.36) K/mm3 Baso # (Auto) (0.01-0.08) K/mm3 Manual Slide Review PT (9.5-12.1) SECONDS INR APTT (24-31) SECONDS Puncture Site ABG pH (7.35-7.45) ABG pCO2 (35.0-45.0) mmHg ABG pO2 (80.0-100.0) mmHg ABG HCO3 (22.0-26.0) meq/L ABG O2 Saturation (96.0-97.0) % ABG Base Excess (-2-2.0) Harjeet Test O2 Delivery Device Oxygen Flow Rate FiO2 (21.00-100.00) % Sodium 138 (136-145) mEq/L Potassium 3.4 L (3.5-5.1) mEq/L Chloride 103 (98-107) mEq/L Carbon Dioxide 23 (21-32) mEq/L Anion Gap 15.4 H (5-15) BUN 5 L (7-18) mg/dL Creatinine 0.5 L (0.55-1.02) mg/dL Est Cr Clr Drug Dosing 126.20 mL/min Estimated GFR (MDRD) > 60 (>60) mL/min BUN/Creatinine Ratio 10.0 L (14-18) Glucose 99 (74-106) mg/dL Lactic Acid (0.4-2.0) mmol/L Calcium 8.3 L (8.5-10.1) mg/dL Phosphorus (2.6-4.7) mg/dL Magnesium (1.8-2.4) mg/dl Total Bilirubin 1.7 H (0.2-1.0) mg/dL AST 99 H ALT 71 H Alkaline Phosphatase 52 (46-116) U/L Creatine Kinase (26-192) U/L Troponin I (0.00-0.056) ng/mL C-Reactive Protein (<1.0) mg/dL Total Protein 6.2 L (6.4-8.2) g/dl Albumin 3.5 (3.4-5.0) g/dl Globulin 2.7 gm/dL Albumin/Globulin Ratio 1.3 (1-2) Lipase (73-393) U/L Urine Color Dark yellow (Yellow) Urine Appearance Slt cloudy H (Clear) Urine pH 6.5 (5.0-8.0) Ur Specific [place] > or = 1.030 (1.005-1.030) Urine Protein 3+ H (Negative) Urine Glucose (UA) Negative (Negative) Urine Ketones 2+ H (Negative) Urine Occult Blood 2+ H (Negative) Urine Nitrite Positive H (Negative) Urine Bilirubin 1+ H (Negative) Urine Urobilinogen 1.0 (0.2-1.0) Ur Leukocyte Esterase Negative (Negative) Urine RBC 5-10 H (0-5) /hpf Urine WBC 0-5 (0-5) /hpf Ur Epithelial Cells 5-10 H (0-5) /hpf Urine Bacteria Many H (FEW) /hpf Urine Mucus Moderate H (FEW) /hpf Urine Opiates Screen (FGUFOK=983) Ur Buprenorphine Scrn (CUTOFF=10) Ur Oxycodone Screen (VBP0LO=450) Urine Methadone Screen (EOHGAF=626) Ur Propoxyphene Screen (FKJDFV=602) Ur Barbiturates Screen (PWOIEW=523) Ur Tricyclics Screen (SZUSDR=276) Ur Phencyclidine Scrn (CUTOFF=25) Ur Amphetamine Screen (BLRHUF=362) U Methamphetamines Scrn (HPZKGN=774) U Benzodiazepines Scrn (MFHASR=136) U Cocaine Metab Screen (ULJVDQ=194) U Marijuana (THC) Screen (CUTOFF=50) Ethyl Alcohol (0.00) gm% Med Orders - Current: Current Medications Enoxaparin Sodium (Lovenox) 40 mg SUBCUT DAILY [facility] Hydromorphone HCl (Dilaudid) 0.5 mg IVPUSH Q2H PRN PRN Reason: Pain (severe 7-10) Ceftriaxone Sodium 1 gm/ (Sodium Chloride) 100 mls @ 200 mls/hr IV Q24H [facility] Last Admin: 06/15/18 18:38 Dose: 200 mls/hr Lactated Ringer's (Ringers, Lactated) 1,000 mls @ 150 mls/hr IV ASDIRECTED [facility] Lorazepam (Ativan) 1 mg IV Q4H [facility] Last Admin: 06/15/18 20:50 Dose: 1 mg Lorazepam (Ativan) 1 mg IVPUSH Q4H PRN PRN Reason: Anxiety Last Admin: 06/15/18 22:14 Dose: 1 mg Miscellaneous Information (Remove Patch) 1 ea TRDERM Q24H [facility] Nicotine (Habitrol) 14 mg TRDERM DAILY [facility] Last Admin: 06/15/18 15:48 Dose: 14 mg Ondansetron HCl (Zofran) 4 mg IV Q4H PRN PRN Reason: Nausea/Vomiting Last Admin: 06/15/18 15:40 Dose: 4 mg Sodium Chloride (Saline Flush) 10 ml FLUSH ASDIRECTED PRN PRN Reason: Keep Vein Open Last Admin: 06/15/18 09:11 Dose: 10 ml Discontinued Medications Ceftriaxone Sodium (Rocephin) 1 gm IVPUSH Q24H [facility] Last Admin: 06/15/18 18:37 Dose: Not Given Diatrizoate Meglum/Diatrizoate Sod (Gastrografin 37%) 90 ml PO ONETIME ONE Stop: 06/15/18 11:36 Last Admin: 06/15/18 18:37 Dose: Not Given Folic Acid (Folic Acid) 1 mg PO ONETIME ONE Stop: 06/15/18 12:19 Last Admin: 06/15/18 15:46 Dose: Not Given Folic Acid (Folic Acid) 1 mg PO ONETIME ONE Stop: 06/15/18 15:31 Last Admin: 06/15/18 15:44 Dose: 1 mg Hydromorphone HCl (Dilaudid) 1 mg IVPUSH ONETIME ONE Stop: 06/15/18 10:21 Last Admin: 06/15/18 11:41 Dose: 0.5 mg Sodium Chloride (Normal Saline) 1,000 mls @ 999 mls/hr IV ONETIME [facility] Last Admin: 06/15/18 09:18 Dose: 999 mls/hr Sodium Chloride (Normal Saline) 1,000 mls @ 999 mls/hr IV ONETIME [facility] Last Admin: 06/15/18 11:23 Dose: 999 mls/hr Sodium Chloride (Normal Saline) 1,000 mls @ 999 mls/hr IV ONETIME [facility] Last Admin: 06/15/18 13:03 Dose: 999 mls/hr Lactated Ringer's (Ringers, Lactated) 1,000 mls @ 999 mls/hr IV .BOLUS ONE Stop: 06/15/18 13:06 Last Admin: 06/15/18 14:46 Dose: 999 mls/hr Lactated Ringer's (Ringers, Lactated) 1,000 mls @ 200 mls/hr IV ASDIRECTED [facility] Last Admin: 06/15/18 20:52 Dose: 200 mls/hr Thiamine HCl 100 mg/ Sodium (Chloride) 101 mls @ 202 mls/hr IV ONETIME ONE Stop: 06/15/18 12:19 Last Admin: 06/15/18 15:46 Dose: Not Given Iopamidol (Isovue-370 (76%)) 200 ml IV ONETIME ONE Stop: 06/15/18 11:37 Last Admin: 06/15/18 18:38 Dose: Not Given Lorazepam (Ativan) 0.5 mg IVPUSH ONETIME ONE Stop: 06/15/18 09:05 Last Admin: 06/15/18 09:11 Dose: 0.5 mg Lorazepam (Ativan) 0.5 mg IVPUSH ONETIME ONE Stop: 06/15/18 10:22 Last Admin: 06/15/18 10:29 Dose: 0.5 mg Lorazepam (Ativan) 1 mg IVPUSH ONETIME ONE Stop: 06/15/18 23:06 Last Admin: 06/15/18 23:17 Dose: 1 mg Metoclopramide HCl (Reglan) 5 mg IVPUSH ONETIME ONE Stop: 06/15/18 11:34 Last Admin: 06/15/18 11:39 Dose: 5 mg Ondansetron HCl (Zofran) 4 mg IVPUSH ONETIME ONE Stop: 06/15/18 09:07 Last Admin: 06/15/18 09:18 Dose: 4 mg Potassium Chloride (Potassium Chloride Solution) 40 meq PO ONETIME ONE Stop: 06/15/18 12:21 Last Admin: 06/15/18 15:46 Dose: Not Given Potassium Chloride (Potassium Chloride Solution) 40 meq PO ONETIME ONE Stop: 06/15/18 15:31 Last Admin: 06/15/18 15:44 Dose: 40 meq Sodium Chloride (Saline Flush) 10 ml FLUSH ONETIME ONE Stop: 06/15/18 11:38 Last Admin: 06/15/18 12:17 Dose: Not Given Thiamine HCl (Vitamin B-1) 100 mg IVPUSH ONETIME ONE Stop: 06/15/18 15:31 Last Admin: 06/15/18 15:50 Dose: 100 mg - Exam General: Reports: Moderate Distress. Denies: Oriented HEENT: Reports: Pupils Equal Neck: Reports: Supple Lungs: Reports: Clear to Auscultation, Normal Respiratory Effort Cardiovascular: Reports: Regular Rate, Tachycardia GI/Abdominal Exam: Normal Bowel Sounds, Soft, No Distention, Tender. No: Guarding, Rigid, Rebound Extremities: Normal Inspection, No Pedal Edema Psy/Mental Status: Reports: Labile Mood, Anxious, Agitated, Hallucinations, Withdrawal Symptoms
[2018-06-16] MEDS: LORazepam 2 MG/ML SDV IV SCH (00:16)
[2018-06-16] MEDS ORDERED: LORazepam 2 MG/ML SDV IVPUSH ONE ×3 (00:28→01:08)
[2018-06-16] MEDS ORDERED: Midazolam 1 MG/ML 2 ML SDV ONE (01:28)
[2018-06-16] MEDS ORDERED: Enoxaparin 40 MG/0.4 ML Syringe SUBCUT SCH (09:00)
== END 2018-06-16 01:30 | DRG 775 ==
LOC: JD.ED 08:44 → JD.MS 12:29
PROVIDERS: ADMIT Family Medicine; ATTEND Family Medicine
DX: F10.239 Alcohol dependence with withdrawal, unspecified (principal); K85.20 Alcohol induced acute pancreatitis without necrosis or infection; R56.9 Unspecified convulsions; E83.42 Hypomagnesemia; N39.0 Urinary tract infection, site not specified; N28.9 Disorder of kidney and ureter, unspecified; E86.0 Dehydration; E86.9 Volume depletion, unspecified
CPT/HCPCS: 36415; 36600; 71045; 71045-26; 76705; 76705-26; 80053; 80306; 81001; 82550; 82803; 83605; 83690; 83735; 84100; 84484; 85025; 85610; 85730; 86140; 87086; 87088; 87186; 93005; 94762; 96361; 96374; 96375; 96376; 99285-25; A9270-GY; G0480; J0696; J1170; J2060; J2405; J2765; J3411; J7030; J7040; J7120; Q9963

== ENCOUNTER 2019-01-25 09:14 | Emergency (ER) | payer MEDICAID ==
--- NOTE | 2019-01-25 10:58 | CR ---
Pelvis: AP view of the pelvis was obtained. Comparison: No previous study. Old pelvic trauma is noted. Extensive orthopedic hardware is present. Joint spaces within both hips are preserved. No acute abnormality is appreciated. Impression: 1. Findings as noted above. 2. No acute bony abnormality is appreciated on AP pelvis. Diagnostic code #2
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
== END 2019-01-25 11:22 | disposition home or self-care (01) ==
LOC: JD.ED 09:14
DX: R10.2 Pelvic and perineal pain (principal); F17.210 Nicotine dependence, cigarettes, uncomplicated; X50.9XXA Other and unspecified overexertion or strenuous movements or postures, initial encounter; W01.0XXA Fall on same level from slipping, tripping and stumbling without subsequent striking against object, initial encounter
CPT/HCPCS: 72170; 72170-26; 99283; 99284-25

== ENCOUNTER 2020-04-12 13:45 | Emergency (ER) | payer MEDICAID ==
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
--- NOTE | 2020-04-12 15:02 | CR ---
Left ankle: 4 views left ankle were obtained. Comparison: No previous ankle studies available. Cortical thickening is seen within the distal fibular diaphysis. This most likely represents an old healed injury. Slight sclerosis is seen within the distal tibia possibly due to old injury or healed fracture. Ankle mortise is symmetric. No acute fracture, dislocation or other bony abnormality is appreciated. Impression: 1. Findings suspicious for old injury as described above. 2. Nothing acute is appreciated on left ankle exam. Diagnostic code #2
== END 2020-04-12 14:59 | disposition home or self-care (01) ==
LOC: JD.ED 13:45
DX: S96.912A Strain of unspecified muscle and tendon at ankle and foot level, left foot, initial encounter (principal); Z72.0 Tobacco use; X58.XXXA Exposure to other specified factors, initial encounter
CPT/HCPCS: 73610-26-LT; 73610-LT; 99282; 99283

== ENCOUNTER 2021-06-08 23:37 | Emergency (ER) | payer MEDICAID | END 2021-06-09 00:37 | disposition home or self-care (01) | LOC: JD.ED 23:37 | DX: S16.1XXA Strain of muscle, fascia and tendon at neck level, initial encounter (principal); S00.03XA Contusion of scalp, initial encounter; Z88.1 Allergy status to other antibiotic agents; Z72.0 Tobacco use; Y04.0XXA Assault by unarmed brawl or fight, initial encounter | CPT/HCPCS: 99283 ==

== ENCOUNTER 2022-07-19 06:20 | Emergency (ER) | payer MEDICAID | END 2022-07-19 09:30 | disposition home or self-care (01) | LOC: JD.ED 06:20 | DX: M23.91 Unspecified internal derangement of right knee (principal); Z88.1 Allergy status to other antibiotic agents; Z72.0 Tobacco use | CPT/HCPCS: 73562-26-RT; 73562-RT; 99282; 99284 ==